=== PATIENT | male | born 1990 | race Caucasian/White ===

== ENCOUNTER 2021-12-28 21:24 | Emergency (ER) | payer OTHER ==
[2021-12-28 22:33] LABS: HEMOGLOBIN 15.6 gm/dl (14.0-17.5); RED BLOOD COUNT 5.21 M/UL (4.20-5.50); WHITE BLOOD COUNT 14.4 K/UL (4.5-11.0)
[2021-12-28 22:51] LABS: BUN/CREATININE RATIO 19 (0-10)
[2021-12-29] MEDS ORDERED: ONDANSETRON ODT4 MG SL (00:30)
[2021-12-29] MEDS ORDERED: TORADOL 10 MG T10 MG PO (00:30)
[2021-12-29] MEDS ORDERED: FLOMAX 0.4 MG0.4 MG PO (00:30)
[2021-12-29] MEDS ORDERED: HYDROCODON-ACE1 EAC4 PO (01:03)
== END 2021-12-29 01:25 | disposition home or self-care (01) ==
LOC: ER1 21:24
PROVIDERS: Student in an Organized Health Care Education/Training Program
DX: N13.2 Hydronephrosis with renal and ureteral calculous obstruction (principal); I10 Essential (primary) hypertension; E78.5 Hyperlipidemia, unspecified; F17.220 Nicotine dependence, chewing tobacco, uncomplicated
CPT/HCPCS: 80053; 81001; 85025; 96374; 96375; 99284; J1170; J1885; J2270; J2405